=== PATIENT | female | born 1980 | race Caucasian/White ===

== ENCOUNTER → 2020-06-04 11:36 | Outpatient (BNVA) | payer OTHER, SELFPAY | PROVIDERS: Visit Provider Surgery ==

== ENCOUNTER 2020-06-20 12:44 | Outpatient (REF) | payer OTHER, SELFPAY ==
--- NOTE | 2020-06-19 13:57 | MHC.SHP ---
Pre-Procedural Eval Section B Chief Complaint: mass and lump left upper limb Allergies: Allergies Allergy/AdvReac Type Severity Reaction Status Date / Time No Known Allergies Allergy Verified 06/04/20 12:23 Plan I have reviewed the history and physical and performed a pertinent physical examination on my patient. No changes have occurred unless specified.
[2020-06-20 13:10] VITALS: BP 133/76; PULSE 62; RESP 18; TEMP 36.4; O2SAT 100; BMI 24.3
--- NOTE | 2020-06-20 15:20 | P.BOP_ITS ---
Brief Operative Note Date of Service: 06/20/20 Pre-op diagnosis: Left axillary lipoma Post-op diagnosis: same Procedure: excision of left axillary lipoma with layered closure size of the lipoma is about 2.5 cm Implants: none Surgeon: Ivory Pierce MD Anesthesia: local Was an Marketing Systems Manager used for this Procedure?: No Estimated blood loss (mL): 2 Pathology: other ( left axillary lipoma) Condition: stable Disposition: other ( home)
--- NOTE | 2020-06-20 15:22 | W.PM.OPN ---
Operative Note Operative Note Date of Service: 06/20/20 Narrative: patient was brought to the minor procedure room placed on the bed in the supine position. The left axilla was prepped and draped in a normal sterile fashion using Betadine scrub and paint. A safety time-out was performed. A marking plan was used to zeenat the planned transverse incision site overlying the lipoma in the left axilla. local anesthetic of 1% lidocaine with epinephrine was used to anesthetize the planned incision site in the left axilla. A 15. Scalpel used to make a 2 cm transverse surgical incision overlying the lipoma. Subcutaneous tissues were dissected down to the lipoma. The lipoma was excised overlying skin and surrounding tissues. The lipoma was passed off the field for pathology. Hemostasis was obtained within the wound. Interrupted 3-0 Vicryl sutures were used to close the subcutaneous tissues. Overlying skin was reapproximated with simple interrupted sutures of 3-0 nylon. Skin was cleaned and dried. Bacitracin was applied to the incision a dry sterile dressing and a medium Tegaderm. Patient tolerated procedure well and was sent home in stable condition.
== END 2020-06-20 12:45 | disposition home or self-care (01) ==
LOC: HO.MS 12:44
PROVIDERS: PCP Internal Medicine; Visit Provider Surgery
PROC: (CPT 21555; principal; 2020-06-20 13:00)
DX: D17.22 Benign lipomatous neoplasm of skin and subcutaneous tissue of left arm (principal)
CPT/HCPCS: 21555; 88304; 88305

== ENCOUNTER → 2020-07-10 13:02 | Outpatient (BNVA) | payer OTHER, SELFPAY | PROVIDERS: PCP Internal Medicine; Referring Provider Internal Medicine; Visit Provider Surgery ==